=== PATIENT | female | born 1985 | race Hispanic/Latino ===

== ENCOUNTER 2020-08-28 09:17 | Day surgery (SDC) | payer MEDICAID ==
[2020-08-28] VITALS (16 sets, daily range): BP systolic 93–124; BP diastolic 49–71
[~2020-08-28] VITALS: Ht 158.8 cm; Wt 59.6 kg
[2020-08-28 09:40] LABS: BASOPHILS % (AUTO) 0.7 % (0.0-5.0); EOSINOPHILS % (AUTO) 1.7 % (0.0-8.0); LYMPHOCYTES % (AUTO) 38.4 % (21.0-51.0); MEAN CORPUSCULAR HEMOGLOBIN 24.4 pg (27.0-33.0); MEAN CORPUSCULAR HGB CONC 30.3 g/dL (32.0-36.0); MEAN CORPUSCULAR VOLUME 80.7 fL (79-99); MONOCYTES % (AUTO) 4.8 % (3.0-13.0); NEUTROPHILS % (AUTO) 54.1 % (40.0-77.0); PLATELET COUNT (AUTO) 437 K/uL (130-400); RED BLOOD CELL COUNT(AUTO) 4.09 MIL/uL (4.00-5.50); RED CELL DISTRIBUTION WIDTH 14.6 % (11.0-15.5)
[2020-08-28 09:51] LABS: CREATININE 0.6 mg/dL (0.5-1.5); POTASSIUM 4.1 mmol/L (3.5-5.1)
[2020-08-28 09:56] LABS: ALBUMIN 3.6 g/dL (3.5-5.0); BILIRUBIN,TOTAL 0.3 mg/dL (0.2-1.0); TOTAL PROTEIN, SERUM 7.2 g/dL (6.0-8.3)
[2020-08-28] MEDS ORDERED: LACTATED RINGERS 1000ML 1,000 ML IV ONE (11:54)
[2020-08-28] MEDS ORDERED: FENTANYL CITRATE PF 50 MCG/1 ML 2ML VIAL ONE ×2 (12:34→16:33)
--- NOTE | 2020-08-28 12:40 | NUR ---
C/O pain Pt stating having pain to right breast of with rate of 8 out of a scale from 0-10. Kenji Don CRNA made aware. Order received for Fentanyl 50mcg IV. Med administered as ordered. VS taken and monitor left in place. Pt tolerated well.
[2020-08-28] MEDS ORDERED: BUPIVACAINE/EPI/PF 0.5% 30ML VIAL IJ ONE (15:22)
[2020-08-28] MEDS ORDERED: LIDOCAINE 1%-EPI 1:100,000 20 ML VIAL IJ ONE (15:22)
[2020-08-28] MEDS ORDERED: GENTAMICIN SULFATE 80 MG/2 ML VIAL ONE (15:22)
[2020-08-28] MEDS ORDERED: CEFAZOLIN SODIUM 1 GM VIAL ONE ×2 (15:23→16:54)
[2020-08-28] MEDS ORDERED: SODIUM CHLORIDE 0.9% 10 ML VIAL ONE (15:23)
--- NOTE | 2020-08-28 16:06 | NUR ---
PT STATES SHE IS VERY ANXIOUS. JAVY Williamson CRNA INFORMED. NO NEW ORDERS.
[2020-08-28] MEDS ORDERED: MIDAZOLAM HCL 1 MG/ML 2ML VIAL ONE (16:30)
[2020-08-28] MEDS ORDERED: LIDOCAINE PF 2% 5ML ABBOJECT ONE (16:32)
[2020-08-28] MEDS ORDERED: SUCCINYLCHOLINE CHLORIDE 20 MG/ML 10 ML VIAL ONE (16:32)
[2020-08-28] MEDS ORDERED: PROPOFOL 10 MG/ML 20ML VIAL IV ONE (16:33)
[2020-08-28] MEDS ORDERED: ROCURONIUM 10MG/1ML SYR 10 MG/ML ML ONE (16:43)
[2020-08-28] MEDS ORDERED: EPHEDRINE SULFATE 50 MG/ML AMPULE ONE (16:49)
[2020-08-28] MEDS ORDERED: ONDANSETRON HCL 4 MG/2 ML VIAL ONE (16:54)
[2020-08-28] MEDS ORDERED: DEXAMETHASONE SOD PHOSPHATE 4 MG/ML 1ML VIAL ONE (16:54)
[2020-08-28] MEDS ORDERED: NEOSTIGMINE 5MG/5ML SYR IV ONE (16:54)
[2020-08-28] MEDS ORDERED: GLYCOPYRROLATE 1 MG/5 ML SYRINGE ONE (16:54)
[2020-08-28] MEDS ORDERED: BACITRACIN 28.4 GM OINT TP ONE (17:29)
== END 2020-08-28 19:27 | disposition home or self-care (01) ==
LOC: DAH 09:17
PROVIDERS: ATTEND Plastic Surgery
DX: N64.4 Mastodynia (principal); T85.44XA Capsular contracture of breast implant, initial encounter; G62.9 Polyneuropathy, unspecified; Z98.82 Breast implant status; K21.9 Gastro-esophageal reflux disease without esophagitis; F41.9 Anxiety disorder, unspecified; Y83.8 Other surgical procedures as the cause of abnormal reaction of the patient, or of later complication, without mention of misadventure at the time of the procedure; Z79.899 Other long term (current) drug therapy
CPT/HCPCS: 14001; 15002; 36415; 80053; 84703; 85025; 87426; A4215; A4216; A4221; A4222; A4223; A4452; A4600; A4606; A4649 ×2; A4663; A6207; J0330; J0690 ×2; J1100; J1580; J2001; J2250; J2405; J2704; J2710; J3010 ×2; J3490 ×3; J7040; J7120